=== PATIENT | female | born 1980 | race Caucasian/White ===

== ENCOUNTER 2021-08-21 12:02 | Emergency (ER) | payer OTHER, SELFPAY ==
--- NOTE | 2021-08-21 12:07 | ED.UPPEXIN ---
HPI - Extremity Injury (Upper) General Chief Complaint: Extremity Injury, Upper Stated Complaint: Left Shoulder Pain Time Seen by Provider: 08/21/21 12:07 Source: patient and RN notes reviewed History of Present Illness HPI narrative: Patient is a 40-year-old female who presents the urgent care with complaints of left shoulder pain. Patient states that it started yesterday around 330. Patient states that she pressure last all day on Thursday and did a lot of laundry yesterday. Patient has been taking Robaxin, Edyta muscle rub and naproxen. Denies of any known injury or fall. No other acute complaints. No acute distress noted. Patient aware of the plan of care. Some parts of this dictation were generated by voice recognition software and may contain typographical and/or grammatical inaccuracies. Related Data Allergies Allergy/AdvReac Type Severity Reaction Status Date / Time cashew nut Allergy Itching Verified 08/21/21 12:19 pistachio nut Allergy Itching Verified 08/21/21 12:19 Review of Systems Review of Systems: CONSTITUTIONAL: Denies fever, chills, or sweats. EYES: Denies visual changes, redness, or discharge. ENT: Denies rhinorrhea, congestion, sore throat, or otalgia. CARDIOVASCULAR: Denies chest pain, palpitations, or edema. RESPIRATORY: Denies cough or dyspnea. GASTROINTESTINAL: Denies abdominal pain, nausea, vomiting, or diarrhea. GENITOURINARY: Denies dysuria or hematuria. SKIN: Denies rash or itching. MUSCULOSKELETAL: Reports of left shoulder pain NEUROLOGIC: Denies headache, numbness, or weakness. All other systems reviewed are negative, except as documented in HPI. PMFSH Comments At the time of my signature, I reviewed and agree with the nursing past medical, surgical, social, and family history. There is no relevant family history pertinent to the patient complaint. Exam Narrative: GENERAL: This is a well-nourished, well-developed patient, in no apparent distress. HEAD: normocephalic, atraumatic. EYES: PERRL. Sclera clear/white. Vision is grossly intact. EARS: External ears normal NOSE: External nose normal with no obvious nasal discharge, nares without redness, no rhinorrhea. THROAT: Mucous membranes moist NECK: Neck supple CARDIOVASCULAR: Regular rate and rhythm without murmurs, gallops, or rubs. RESPIRATORY: Clear to auscultation. Breath sounds equal bilaterally. No wheezes, rales, or rhonchi. SKIN: warm, intact with no suspicious lesions or rash, good texture and turgor. NEURO: awake, alert, and oriented to person, place and time. There were no obvious focal neurologic abnormalities. EXTREMITIES: No obvious dislocation or abnormality noted to the left shoulder/left upper extremity. Positive strong left radial pulse with capillary refill less than 2 seconds. Decreased range of motion due to pain. Pain with adduction and abduction of the left shoulder. Course Course Level of Care: Express Care Visit Vital Signs Vital signs: Vital Signs Temperature 99 F 08/21/21 12:11 Pulse Rate 73 08/21/21 12:11 Respiratory Rate 16 08/21/21 12:11 Blood Pressure 127/76 08/21/21 12:11 Pulse Oximetry 100 08/21/21 12:11 Temperature 99 F 08/21/21 12:11 Pulse Rate 73 08/21/21 12:11 Respiratory Rate 16 08/21/21 12:11 Blood Pressure 127/76 08/21/21 12:11 Pulse Oximetry 100 08/21/21 12:11 Reviewed MDM - Extremity Injury (Upper) MDM Narrative Medical decision making narrative: Advised the patient to complete the steroid regimen as prescribed. Use the ibuprofen as needed. Use the Flexeril prior to bedtime or as needed as a muscle relaxant. Be aware that the Flexeril will make you drowsy and would not advise operating heavy machinery or working on the medication. Rest the shoulder is much as possible and do slow range of motion exercises. Do not sling the arm. Frozen shoulder is very painful and no movement will cause more future problems. Avoid lifting above the head or any strenuou
[2021-08-21 12:11] VITALS: BP 127/76; PULSE 73; RESP 16; TEMP 37.2; O2SAT 100
== END 2021-08-21 12:51 | disposition home or self-care (01) ==
PROVIDERS: Emergency Provider Nurse Practitioner Family
DX: M77.8 Other enthesopathies, not elsewhere classified (principal)
CPT/HCPCS: 99213; G0463